=== PATIENT | male | born 1980 | race Caucasian/White ===

== ENCOUNTER 2017-01-07 08:22 | Emergency (ER) | payer MEDICAID ==
[~2017-01-07] VITALS: Ht 177.8 cm; Wt 105.0 kg
[2017-01-07 08:33] VITALS: BP 165/88
[2017-01-07] MEDS ORDERED: BACITRACIN ZINC OINT UDPKT TOP ONE (09:15)
== END 2017-01-07 09:32 | disposition home or self-care (01) ==
LOC: ER 08:41
DX: S80.212A Abrasion, left knee, initial encounter (principal); S80.211A Abrasion, right knee, initial encounter; M54.5 Low back pain; I10 Essential (primary) hypertension; V29.69XA Unspecified motorcycle rider injured in collision with other motor vehicles in traffic accident, initial encounter; Y93.89 Activity, other specified; Y99.8 Other external cause status; Y92.89 Other specified places as the place of occurrence of the external cause
CPT/HCPCS: 99283; Z7610